=== PATIENT | male | born 1970 | race Caucasian/White ===

== ENCOUNTER 2024-05-29 09:06 | Outpatient (OUT) | payer OTHER, SELFPAY ==
--- NOTE | 2024-05-29 09:15 | MR_ITS ---
The [address] [address] Patient Name: AUDIE GORDON MRN: [id number] date: 1970 Sex: M Assigned Patient Location: MRI Current Patient Location: MRI Accession/Order Number: [id number] Exam Date: 05/29/2024 10:00 Report Date: 05/29/2024 12:46 At the request of: ISHAAN DUNCAN Procedure: MR head/brain wo/w con MR head/brain wo/w con, 05/29/2024 10:00 AM EDT INDICATION: History Of Migraines, New Bilateral Vision Disturbance COMPARISON: Prior CT of the head dated 06/29/2016 TECHNIQUE: Multiplanar, multisequential MRI images of brain were obtained without and with injection of contrast. FINDINGS: The cerebral sulci as well as ventricular system are appropriate for age. There is no restricted diffusion. Hyperintensities on T2 and FLAIR images in the aguilera radiata and centrum semiovale with sparing of U fibers are nonspecific, statistically most likely consistent with mild microvascular ischemic changes or migraine or both in appropriate clinical setting. There is no intracranial mass, mass effect, midline shift, intra or extra-axial fluid collection or large hemorrhage. No abnormal enhancing lesion is noted. Normal flow-void in the intracranial vessels is noted. The visualized portions of orbits, mastoid air cells as well as paranasal sinuses are unremarkable. MR/MR head/brain wo/w con IMPRESSION: No acute intracranial process is noted. Mild nonspecific white matter changes commonly seen in the context of migraine. Electronically authenticated by: ADDY NINO Date: 05/29/2024 12:46
== END 2024-05-29 09:07 | disposition home or self-care (01) ==
LOC: MRI 09:09
PROVIDERS: PCP Internal Medicine; Visit Provider Nurse Practitioner Family
DX: H53.9 Unspecified visual disturbance (principal); G43.709 Chronic migraine without aura, not intractable, without status migrainosus
CPT/HCPCS: 70553; A9575